=== PATIENT | male | born 1950 | race Caucasian/White ===

== ENCOUNTER 2019-01-30 06:32 | Observation (INO) ==
--- NOTE | 2019-01-24 10:20 | Anesthesiology Consultation ---
Date of Service January 24, 2019 Assessment & Plan (1) Encounter for pre-operative examination: Chart Review Chart Review: Acceptable Risk for Surgery and Patient NOT seen in Pre Admission Testing Consults Requested none History Surgery Operation Date: 01/30/19 11:30 Proposed Procedures p Open Right, Possible Bilateral Inguinal Hernia Repair with Mesh; Possible Bowel Resection - Margie Mora MD Height/Weight Height: 5 ft 7 in Weight: 98.883 kg Allergies Allergy/AdvReac Type Severity Reaction Status Date / Time No Known Allergies Allergy Verified 01/23/19 14:34 Medications Home Medications Medication Instructions Recorded Confirmed Last Taken dorzolamide-timolol 1 drp OPHTHALMIC (EYE) Q12H 01/23/19 01/23/19 Unknown Past Medical History Medical History Glaucoma Hx of tooth extraction Patient denies significant medical history Vision decreased LEFT Past Surgical History Surgical History Hx of cataract extraction BOTH EYES Social History Smoking Status: Current some day smoker tobacco type: cigarettes Smoking cigarettes per day: 1-2 Do You Dip or Chew Tobacco: No Hx Alcohol Use: Yes (WEEKEND) Alcohol type: beer alcohol intake frequency: a few times a week Hx Substance Use: No substance use type: does not use Exercise / Class Metabolic Activity II 4-5 Yardwork/Stairs/Walk up hill Testing Electrocardiogram Date: 12/06/18 Findings: + NSR @ (68 bpm) Laboratory Results CBC 12/26/18 WBC 5.5 Hgb 17.0 platelet 177 BMP 12/06/18 Na 141 K 3.3 Cl 101 CO2 28 BUN 11 Cr 1.2 glucose 97
[~2019-01-30 06:32] MED LIST: CEFAZOLIN 2000MG 2,000 MG/15 ML SYR IV SCH; LR 15ML/HR IV SCH; SODIUM CHLORIDE 0.9% 1000ML IV SCH
[2019-01-30] MEDS ORDERED: ONDANSETRON INJ 2 MG/ML 2 ML VIAL ONE (07:18)
[2019-01-30] MEDS ORDERED: LIDOCAINE HCL 2% 2 ML VIAL/AMP(20MG/ML) INFIL ONE (07:18)
[2019-01-30] MEDS ORDERED: PROPOFOL IV EMULSION 10 MG/ML 20 ML VIAL IV ONE (07:18)
[2019-01-30] MEDS ORDERED: DEXAMETHASONE SOD INJ 4 MG/ML VIAL ONE (07:18)
[2019-01-30] MEDS ORDERED: MIDAZOLAM HCL 1 MG/ML 2ML VIAL ONE (07:19)
[2019-01-30] MEDS ORDERED: fentaNYL citrate 100 MCG/2 ML VIAL ONE ×4 (07:19→12:07)
[2019-01-30] MEDS ORDERED: ATROPINE SULFATE 0.1 MG/ML 10ML SYR IV PRN (08:33)
[2019-01-30] MEDS ORDERED: DEXAMETHASONE SOD INJ 4 MG/ML VIAL IV PRN (08:33)
[2019-01-30] MEDS ORDERED: fentaNYL citrate 100 MCG/2 ML VIAL IV PRN (08:33)
[2019-01-30] MEDS ORDERED: HYDROmorphone INJ 2 MG/ML SYR/VIAL IV PRN (08:33)
[2019-01-30] MEDS ORDERED: ePHEDrine sulfate 50 MG/ML AMP IV PRN (08:33)
[2019-01-30] MEDS ORDERED: ONDANSETRON INJ 2 MG/ML 2 ML VIAL IV PRN ×2 (08:33→17:16)
[2019-01-30] MEDS ORDERED: BUPIVACAINE LIPOSOME 1.3% 266 MG/20 ML VIAL ONE (09:51)
[2019-01-30] MEDS ORDERED: BUPIVACAINE 0.25% 30 ML VIAL ONE (09:51)
--- NOTE | 2019-01-30 09:59 | History & Physical Bridge Note ---
Date of Service January 30, 2019 History & Physical Bridge Note I have examined the patient, reviewed the History & Physical and in the interval since the performance of the History & Physical I have noted the following changes of clinical significance: no changes noted
--- NOTE | 2019-01-30 10:05 | History & Physical Report ---
Date of Service January 30, 2019 Assessment & Plan (1) Inguinal hernia: IMPRESSION AND PLAN: Lewis Sanders is a 68 year old male who presents with a very large right and possibly left inguinal hernia. Discussed natural progression and possible complications of hernias. Also discussed laparoscopic vs open repair, which given the size of his hernia this would be difficult to repair laparoscopically, and primary repair vs repair with mesh. Due to size of the hernia as well as potential need for admission surgery would have to be performed at [place]. - Obtain CT scan with PO, possible IV (if able to given renal function) to further evaluate extent of hernia(s). - Will contact the patient's sister (Terrie Jimenez [phone]) with results. The patient has asked that I discuss CT findings with her as well as our discussion today to further explain hernia and recommendations - Discussed EGD for dysphagia and Colonoscopy. Was previously told it could not be performed at [place]. Office staff is looking into this and will try to have scopes setup here as is the patient's preference. - Will need pre-op clearance/risk stratification prior to surgery UPDATE SINCE INITIAL VISIT: SUBJECTIVE: Lewis Sanders presents to the clinic following 12/06/18 EGD and colonoscopy. He presents today with his sister who is helping to care for the patient. He is able to live independently and take care of ADLs, but she helps with keeping appointments and is the family member he discusses medical things with to help make decisions. Since his EGD and colonoscopy he may have noticed a slight improvement in swallowing. Still has issues with food (especially dry food such as chicken and other meats) and pills getting stuck, but notes he is now able to swallow some pills. He is taking pills without water sometimes. No major changes in his inguinal hernia. Still causes discomfort and makes daily care, including wiping, difficult. OBJECTIVE: Filed Vitals: 12/28/18 1555 BP: 126/70 Pulse: 64 Resp: 18 Temp: 36.6 C (97.8 F) TempSrc: Tympanic Weight: 101 kg (222 lb 9.6 oz) Constitutional: alert and no distress. PATHOLOGY: A. Esophagus at 33 cm, biopsy: Squamocolumnar mucosa with features of moderate reflux esophagitis, ulceration, acute inflammation, fungal hyphae and bacteria. No evidence of intestinal metaplasia or dysplasia identified. B. Duodenum, biopsy: Duodenal mucosa with preservation of villous architecture and no increase in intraepithelial lymphocytes. Immunohistochemical assay for Helicobacter pylori organisms is negative with appropriate control. C. Esophagus at 38 cm, biopsy: Squamocolumnar mucosa with features of mild reflux esophagitis and chronic gastritis, moderate. No evidence of intestinal metaplasia or dysplasia identified. D. Descending colon, polyp #2, biopsy: Tubular adenoma. E. Descending colon, polyp #1, biopsy: Tubular adenoma. F. Distal transverse colon, polyp #2, biopsy: Tubular adenoma. G. Distal transverse colon. polyp #1, biopsy: Tubular adenoma. IMPRESSION and PLAN: Lewis Sanders is a 68 yo male with bilateral inguinal hernias (very large right inguinal hernia,which was the reason for his initial evaluation, and a left inguinal hernia) who also had dysphagia. On CT scan obtained to further evaluate the hernia there were findings concerning for a rectal mass. Additional concerning findings and recommendations on CT scan include: rectal mass (colonoscopy was performed, Radiology also recommended correlation with PSA level, patchy ground glass opacities in the lower lobes likely representing inflammation or infection in the acute setting, enlarged lymph nodes in the right presacral region - concerning for mets, and prominent bilateral iliac chain lymph nodes) Colonoscopy was performed which was negative for a malignancy, but showed four tubular adenomas. EGD revealed fungal hyphae and bacteria, reflux esophagitis, ulceration, and acute inflammation; no metaplasia or dyplasia, and gastritis. Discussed with the patient and his sister the risk factors and implications for fungal infections of the esophagus, including immunosuppression Diagnoses: Tubular adenomas of the colon Esophageal fungal hyphae and bacteria (esophageal candidiasis) Reflux esophagitis Chronic gastritis Esophageal ulceration - Repeat colonoscopy in 3 years - Omeprazole 40 mg daily (30 minutes before meal) x 8 weeks - Fluconazole 400 mg daily x 14 days. Re-evaluation after 14 days to determine if duration should be increased to 21 days total. - Does not need to see provider regarding esophageal dilation. I clarified that the esophagus was assessed during EGD and discussed the above findings and to a llow treatment for esophageal fungus and assess symptoms prior to repeating EGD as this is the likely cause of his symptoms. However, he may need another scope for evaluation, but this should wait until after treatment. - Likely will require repeat EGD after 2 months of PPI - Take all pills with water - PSA, may require further evaluation by PCP vs Urology referral pending results (though in review of imaging thickening appears to be intraluminal, colonoscopy was negative for malignancy) - Ground glass opacities in lower lobes on CT scan, with recommendation for f/u imaging to ensure resolution. Message sent to PCP to arrange further follow up. - Message to PCP regarding all of the above and surgical clearance - Schedule for open right, possible bilateral, inguinal hernia repair with mesh, possible bowel resection. Consent reviewed, but will obtain official consent on the day of surgery as procedure will be done at [facility], which requires a different form. - Discussed increased technical difficulty of the case and increased risk of post-op complications given the size of the hernia. This included increased risk of seroma, hematoma, and need for bowel resection. Discussed increased risk of breathing difficulties given size of hernia, especially if there is loss of domain and potential for increased intra-abdominal pressure. Discussed need for inguinal and possible midline incision for repair and possible bowel resection - Discussed expected swelling and ecchymosis of groin and scrotum and high likelihood of seroma formation. - Discussed possible need for admission post-op and/or someone to stay with him for the first few days after surgery. He is very reluctant to either of these. States he prefers to be alone and wants to be at home. After discussion he is agreeable. - Schedule procedure for [facility]. Will have office contact the patient's sister (Terrie at [phone]) with further perioperative instructions and for scheduling - [place]-operative expectations were discussed with the patient including but not limited to: - Weight restriction of approximately 10 pounds x 4-6 weeks post-op - Pain control including scheduled Tylenol alternating with Ibuprofen, with possible Oxycodone for breakthrough as well as use of ice - The need for a pack train driver to and from the hospital the day of the procedure (if not admitted, as discussed above). Risks, benefits, goals, complications, post-op expectations, limitations, and alternatives were discussed with the patient and his sister. I discussed the deny ure of inguinal hernias. I discussed risks, which include, but are not limited to, pain, scarring, bleeding and associated problems, infection, heart attack, stroke, blood clots including deep vein thrombosis and pulmonary embolism, injury to surrounding tissues or organs, , need for additional procedures. Additional risks related to hernia repair which were discussed include hernia recurrence, acute and chronic pain, injury to nerves causing numbness and/or burning, injury to bowel, seroma, hematoma, risk of injury to spermatic cord or testicular damage, decreased sperm count or infertility, bruising and/or swelling of testicle(s), penis, and scrotum, mesh infection and need for mesh removal. All questions were answered to apparent satisfaction. History of Present Illness CHIEF COMPLAINT: Right inguinal hernia HISTORY OF PRESENT ILLNESS: The patient is a 68 year old male with a complaint of right inguinal hernia. The hernia has been present since probably 2012, thinks he recalls it starting during work. The patient has not had a history of a previous hernia repair. Symptoms present: reports right groin lump, has gotten significantly larger, to the point where his testicle is enlarged where he has difficulty sitting on the toilet and gets in the way of wiping. Denies: nausea, vomiting, pain, back pain, redness or erythema and change in bowel habits. Denies pain. Lump is not reducible. Symptoms did start at work. Symptoms are causing moderate limitations on the patient's ability to work and/or perform daily functions. Patient does not have a history of chronic constipation, chronic cough and difficulty urinating. When he was seen by his PCP on 10/25/18 he reported his hernia was getting larger. He also complained of difficulty swallowing pills and food, especially meat (referral to GI was placed). He has never had an EGD. He reports his last colonoscopy was unremarkable and was > 10 years ago. Pertinent PMHx: denies; patient denies COPD but it is listed in his chart Tobacco use: has "a cigarette from time to time when (he) is bored" BMI: BMI: 34.61 kg/m Primary Care Provider: Lovely Domingo PA-C Allergies Allergy/AdvReac Type Severity Reaction Status Date / Time No Known Allergies Allergy Verified 01/30/19 07:34 Home Medications Home Medications Medication Instructions Recorded Confirmed Type dorzolamide-timolol 1 drp OPHTHALMIC (EYE) Q12H 01/23/19 01/30/19 History Past Med/Surg History Medical History Glaucoma Hx of tooth extraction Patient denies significant medical history Vision decreased LEFT Surgical History Hx of cataract extraction BOTH EYES Social History Preferred Language: Nepalese Communication Ability: Effective Beliefs That Will Affect Care: None Current Living Situation: Alone Other Information That Helps Us Care for You: No Feels Safe at Home: Yes Safety Concerns: Feels Safe At This Time Smoking Status: Current some day smoker Tobacco Type: cigarettes Cigarettes Per Day: 1-2 Do You Dip or Chew Tobacco: No Hx Alcohol Use: Yes (WEEKEND) Alcohol type: beer Hx Substance Use: No Review of Systems Review of Systems: REVIEW OF SYSTEMS: Constitutional: No change in weight, No weakness, No fatigue and No fevers, sweats, or chills Eyes: No recent significant change in vision, No eye pain, redness, discharge, No diplopia, No h/o cataracts and No h/o glaucoma Ears: No ear pain, No drainage, No recent change in hearing and Positive for recent onset of tinnitus Nose: No significant epistaxis and Positive for frequent sinus issues and drainage over the past couple of years Mouth: No bleeding gums or No sore throat Neck: No lumps or masses, No swollen glands, No recent swelling in thyroid area, No significant pain in neck and No h/o goiter or thyroid disease Pulmonary: No cough, sputum, or hemoptysis, No shortness of breath and No recent change in breathing Cardiovascular: No chest pain, No shortness of breath, No dyspnea on exertion, No edema, No palpitations and No syncope Gastrointestinal: No abdominal pain, No change in bowel habits, No significant heartburn, No significant change in appetite, No nausea, vomiting, diarrhea, or constipation, No hematemesis, No blood in stools or black tarry stools, No abdo heike bloating or early satiety and No dysphagia, see HPI Male: No dysuria, No frequency, No incontinence and No urgency Hematologic: No coagulation disorder, No anemia, No abnormal bleeding, No ch ills, No bruising, No night sweats, No swollen nodes and No weight loss Extremities: No pain, redness or swelling on the joints Skin/Integumentary: No edema, No rash and No itching Neurologic: Normal balance, No headaches, No seizures and No weakness Psychiatric: No depression, No anxiety and No psychosis Sleep: No sleep disorders Physical Exam Physical Exam: Constitutional: alert, healthy Head: normocephalic, atraumatic Eyes: conjunctiva non-injected, sclera white, EOMI, left lateral eye gaze Ears: pinna normal shape and color Nose: no purulent discharge Mouth: no exudate Neck: supple, no adenopathy, no JVD, trachea midline Lungs: clear to auscultation, breath sounds are equal and symmetric Heart: regular rate & rhythm and no murmur, gallops or rubs Abdomen: soft , non-tender and non-distended; very large right inguinal hernia, possible left, with multiple loops of bowel, possible colon, within scrotum, soft, nontender, not reducible Back: normal curvature, no CVA tenderness Extremities: no joint deformities, effusion, or inflammation, no edema, no skin discoloration Neuro: Alert; slow, shuffling gait, uses cane Skin: no obvious rashes or significant lesions, warm and dry with good turgor Results & Data Vital Signs (Past 12 Hours) Vital Signs Temp Pulse Resp BP Pulse Ox 01/30/19 07:42 36.6 C 78 20 175/97 H 95
[2019-01-30] MEDS ORDERED: ePHEDrine sulfate 50 MG/ML AMP ONE (11:36)
[2019-01-30] MEDS ORDERED: GLYCOPYRROLATE 0.2 MG/ML VIAL ONE (12:47)
[2019-01-30] MEDS ORDERED: NEOSTIGMINE METHYLSULFATE 5 MG/5 ML SYR ONE (12:47)
[2019-01-30] MEDS ORDERED: ROCURONIUM BROMIDE 10 MG/ML 5 ML VIAL ONE (12:47)
--- NOTE | 2019-01-30 13:22 | Post Operative Brief Note ---
Immediate Post Op Note v1 Date of Surgery January 30, 2019 Pre & Post Diagnosis Operation Date: 01/30/19 08:50 Pre-Op Diagnosis: Right Inguinal hernia, possible Left Inguinal hernia Post-Op Diagnosis: Large Indirect Right Inguinal Hernia Procedure Operation Date: 01/30/19 08:50 Actual Procedures p Open Right Inguinal Hernia Repair with Mesh(Right) - Margie Mora MD (Bard Perfix extra large Plug and Patch; Ref: [id number], Lot: [id number]) Surgeon Margie Mora MD Burr Filer Fabiano Izaguirre MD Estimated Blood Loss 15 Findings Consistent with Post-Op Diagnosis Fluids 1500 mL Specimens None Drains Arnold Catheter (inserted by Kathryn Martins RN without difficulty, draining clear yellow urine) Anesthesia Type General Complications none
--- NOTE | 2019-01-30 14:04 | Operative Report ---
Post Operative Report Pre & Post Diagnosis Operation Date: 01/30/19 08:50 Pre-Op Diagnosis: Right Inguinal hernia Post-Op Diagnosis: Indirect Right Inguinal Hernia Procedure Operation Date: 01/30/19 08:50 Actual Procedures p Open Right Inguinal Hernia Repair with Mesh(Right) - Margie Mora MD (Bard Perfix extra large Plug and Patch; Ref: [id number], Lot: [id number]) Surgeon Margie Mora MD Academic Support Specialist Fabiano Izaguirre MD Estimated Blood Loss 15 Findings See Below Very large indirect right inguinal hernia with several loops of small bowel within the scrotum. Specimens None Anesthesia Type General Complications none Disposition Disposition: Recovery Room Description of Procedure History and Indications: The patient is a 68 year old male who presents with a right inguinal hernia, whichisnot recurrent. Discussed the option of observation vs operative intervention as well as open vs laparoscopic and mesh vs primary repair. The patient was consented for an open inguinal hernia repair with mesh. Risks, benefits, goals, complications, post-op expectations, limitations, and alternatives were discussed withthe patient. I discussed the nature ofright inguinal. I discussed risks, which include, but are not limited to, pain, scarring, bleeding and associated problems, infection, heart attack, stroke, blood clots including deep vein thrombosis and pulmonary embolism, injury to surrounding tissues or organs, , need for additional procedures. Additional risks related to hernia repair which were discussed include hernia recurrence, acute and chronic pain, injury to nerves causing numbness and/or burning, injury to bowel, seroma, hematoma, risk of injury to spermatic cord or testicular damage, decreased sperm count or infertility, bruising and/or swelling of testicle(s), penis, and scrotum, and need for mesh removal. All questions were answered to apparent satisfaction andthe patientfreely signed consent. Description of Procedure: The patient was taken to the operating room and placed in the supine position.The patient received perioperative antibiotics and SCDs were on and working. General anesthesia was induced. The patient was prepped and draped in the usual sterile fashion.A timeout was held verifying the correct patient, procedure, laterality, and implants. Local anesthetic (Exparel mixed with Marcaine) was injected in the planned area of incision. An incision was made with a scalpel and deepend through Amaya's and Camper's fascia with electrocautery until the external oblique aponeurosis was encountered. This was cleaned and the external ring was exposed. Local anesthetic was injected under the aponeurosis. An incision was made in the midportion of the external oblique aponeurosis in the direction of its fibers. This was further opened with Metzenbaum scissors. Flaps of the external oblique were developed cephalad and inferiorly. There was a large indirect inguinal hernia with several loops of small bowel within the scrotum and a large hernia sac. The cord was identified. It was gently dissected free at the pubic tubercle and encircled with a Pranav drain. The vas and testicular vessels were identified and protected from harm. Attention was directed to the anteromedial aspect of the cord,and an indirect hernia sac was identified. The sac was carefully dissected free of the cord down to the level of the internal ring. The hernia contents were reduced into the peritoneal cavity. The sac was excised closed witha running 0Vicryl suture. Redundant sac was excised. The stump of the sac was checked for hemostasis and allowed to retract into the abdomen. Attention was then turned to the floor of the canal, which was weak. Contents were reduced. An extra large plug was sutured into placeintwo locations using 0 PDS suture. The oval medial portion of the mesh patch was then sutured to the pubic tubercle. Care was taken to ensure that the mesh was placed in a relaxed fashion to avoid excessive tension and that no neurovascular structures were caught in the repair. Laterally the tails of the mesh were crossed, sutured together with an interrupted 0 PDS and the internal ring recreated, allowing for passage of the small finger. The mesh was sutured to the inguinal ligament with 0 PDS in an interrupted fashion. Additional local anesthetic was injected into the surgical site. Hemostasis was again checked. The [place] drain was removed. The external oblique aponeurosis was closed with a running suture of 3-0 Vicryl. The wound was injected with local anesthetic. Amaya's fascia was closed with 3-0 Vicryl in an interrupted fashion. A safety pause was held confirming that there were no specimens. The skin was closed with a subcuticular running 4-0 Monocryl suture. Instrument and sponge counts were reported as correct. Dermabond was applied to the wound. The patient tolerated the procedure well. He was extubated and taken to the recovery area in stable condition. I attest to the content of the Intraoperative Record and any orders documented therein. Any exceptions are noted below.
--- NOTE | 2019-01-30 14:40 | Anesthesiology Progress Note ---
Date of Service January 30, 2019 Anesthesia Post Procedure Vital Signs Vital Signs: Temp Pulse Pulse Resp BP Pulse Ox 01/30/19 14:25 37.1 C 83 18 155/84 H 95 01/30/19 14:15 87 15 131/86 94 01/30/19 14:05 88 15 163/84 H 100 01/30/19 13:55 92 H 14 156/103 H 99 01/30/19 13:45 81 18 121/85 96 01/30/19 13:38 36.7 C 87 14 159/109 H 99 01/30/19 07:42 36.6 C 78 20 175/97 H 95 Notes Mental Status: alert / awake / arousable and participated in evaluation Patient Amnestic to Procedure: Yes Nausea / Vomiting: adequately controlled Pain: adequately controlled Airway Patency, RR, SpO2: stable & adequate BP & HR: stable & adequate Hydration State: stable & adequate Anesthetic Complications: no major complications apparent
[2019-01-30] MEDS ORDERED: HYDROmorphone INJ 1 MG/ML SYRINGE IV PRN ×2 (17:16)
[2019-01-30] MEDS ORDERED: IBUPROFEN 600 MG TAB PO PRN (17:16)
[2019-01-30] MEDS ORDERED: HYDROmorphone INJ 0.5 MG/0.5 ML SYR IV PRN (17:16)
[2019-01-30] MEDS ORDERED: OXYCODONE HCL IR 5 MG TAB (IMMEDIATE RELEASE) PO PRN (17:16)
[2019-01-30] MEDS ORDERED: ACETAMINOPHEN 325 MG TAB PO PRN (17:16)
[2019-01-30] MEDS ORDERED: SODIUM CHLORIDE 0.9% 1000ML 1,000 ML IV SCH (18:00)
[2019-01-30] MEDS: DORZOLAMIDE/TIMOLOL 22.3/6.8MG/ML 10 ML BTL OP SCH (21:45)
[2019-01-31] MEDS: DORZOLAMIDE/TIMOLOL 22.3/6.8MG/ML 10 ML BTL OP SCH (07:31)
--- NOTE | 2019-01-31 08:27 | Anesthesiology Progress Note ---
Date of Service January 31, 2019 Anesthesia Post Procedure Vital Signs Vital Signs: Temp Pulse Pulse Resp BP BP Pulse Ox 01/31/19 07:05 36.9 C 70 16 104/69 93 01/31/19 03:15 36.9 C 70 16 103/69 93 01/30/19 23:28 36.8 C 78 16 111/78 93 01/30/19 20:17 36.8 C 62 19 110/74 91 01/30/19 19:18 36.4 C L 81 20 110/76 93 01/30/19 18:16 36.9 C 90 20 102/66 92 01/30/19 17:49 36.9 C 82 19 100/68 93 01/30/19 16:45 83 18 138/68 93 01/30/19 15:45 92 H 18 127/85 94 01/30/19 15:15 80 18 106/57 L 93 01/30/19 14:45 36.5 C 83 18 117/87 93 01/30/19 14:25 37.1 C 83 18 155/84 H 95 01/30/19 14:15 87 15 131/86 94 01/30/19 14:05 88 15 163/84 H 100 01/30/19 13:55 92 H 14 156/103 H 99 01/30/19 13:45 81 18 121/85 96 01/30/19 13:38 36.7 C 87 14 159/109 H 99 Notes Mental Status: alert / awake / arousable Patient Amnestic to Procedure: Yes Nausea / Vomiting: adequately controlled Pain: adequately controlled Airway Patency, RR, SpO2: stable & adequate BP & HR: stable & adequate Hydration State: stable & adequate Anesthetic Complications: no major complications apparent and Pt Satisfied with anesthetic care Notes: pt denies pain at this time
--- NOTE | 2019-01-31 14:01 | Surgery Progress Note ---
Date of Service Patient seen at [address] Mora LATE ENTRY January 31, 2019 Assessment & Plan (1) Inguinal hernia: PD # 1 s/p open right inguinal herniorrhaphy with mesh -vitals stable, afebrile - no n/v, tolerating regular diet - minimal post op pain Plan: Discharge home today discharge instructions reviewed with patient and sister encouraged to ambulate prior to discharge Rx for Oxycodone prn pain Rx for Fluconazole and Omeprazole F/u surgical office in [address] Mora has seen and examined pt, agrees with above. Supervising Physician Co-Signing Physician Notes I have seen and evaluated the patient and reviewed the medical record. I agree with the documentation as provided in this note by Queta Martinez PA-C. Subjective Patient feeling well minimal pain able to urinate still has itching in the groin and around the scrotum (has had for years) no chest pain/sob has alot of phlegm production tolerating breakfast ready to go home Physical Exam Constitutional: WD/WN, vitals as above no acute distress Respiratory: normal respiratory effort; no respiratory distress and no labored breathing Gastrointestinal (Abdomen): Inspection/Auscultation: abdomen normal to inspection; abdomen not distended Percussion/Palpation: + guarding and abdomen soft; abdomen nontender and abdomen not rigid Right groin incision: clean/dry/intact there is moderate erythema surrounding the incision and the entire right groin extending to the left however no warmth to touch or induration. Likely reactive from surgery and edema Skin: no rashes, warm and dry Results & Data Vital Signs (Past 12 Hours) Vital Signs Temp Pulse Resp BP Pulse Ox 01/31/19 09:22 36.9 C 70 16 104/69 93 01/31/19 07:05 36.9 C 70 16 104/69 93 01/31/19 03:15 36.9 C 70 16 103/69 93
--- NOTE | 2019-02-02 11:00 | Discharge Summary ---
Date of Service February 02, 2019 Admission HPI Per Admitting Provider UPDATE SINCE INITIAL VISIT: SUBJECTIVE: Lewis Sanders presents to the clinic following 12/06/18 EGD and colonoscopy. He presents today with his sister who is helping to care for the patient. He is able to live independently and take care of ADLs, but she helps with keeping appointments and is the family member he discusses medical things with to help make decisions. Since his EGD and colonoscopy he may have noticed a slight improvement in swallowing. Still has issues with food (especially dry food such as chicken and other meats) and pills getting stuck, but notes he is now able to swallow some pills. He is taking pills without water sometimes. No major changes in his inguinal hernia. Still causes discomfort and makes daily care, including wiping, difficult. OBJECTIVE: Filed Vitals: 12/28/18 1555 BP: 126/70 Pulse: 64 Resp: 18 Temp: 36.6 C (97.8 F) TempSrc: Tympanic Weight: 101 kg (222 lb 9.6 oz) Constitutional: alert and no distress. PATHOLOGY: A. Esophagus at 33 cm, biopsy: Squamocolumnar mucosa with features of moderate reflux esophagitis, ulceration, acute inflammation, fungal hyphae and bacteria. No evidence of intestinal metaplasia or dysplasia identified. B. Duodenum, biopsy: Duodenal mucosa with preservation of villous architecture and no increase in intraepithelial lymphocytes. Immunohistochemical assay for Helicobacter pylori organisms is negative with appropriate control. C. Esophagus at 38 cm, biopsy: Squamocolumnar mucosa with features of mild reflux esophagitis and chronic gastritis, moderate. No evidence of intestinal metaplasia or dysplasia identified. D. Descending colon, polyp #2, biopsy: Tubular adenoma. E. Descending colon, polyp #1, biopsy: Tubular adenoma. F. Distal transverse colon, polyp #2, biopsy: Tubular adenoma. G. Distal transverse colon. polyp #1, biopsy: Tubular adenoma. IMPRESSION and PLAN: Lewis Sanders is a 68 yo male with bilateral inguinal hernias (very large right inguinal hernia,which was the reason for his initial evaluation, and a left inguinal hernia) who also had dysphagia. On CT scan obtained to further evaluate the hernia there were findings concerning for a rectal mass. Additional concerning findings and recommendations on CT scan include: rectal mass (colonoscopy was performed, Radiology also recommended correlation with PSA level, patchy ground glass opacities in the lower lobes likely representing in flammation or infection in the acute setting, enlarged lymph nodes in the right presacral region - concerning for mets, and prominent bilateral iliac chain lymph nodes) Colonoscopy was performed which was negative for a malignancy, but showed four tubular adenomas. EGD revealed fungal hyphae and bacteria, reflux esophagitis, ulceration, and acute inflammation; no metaplasia or dyplasia, and gastritis. Discussed with the patient and his sister the risk factors and implications for fungal infections of the esophagus, including immunosuppression Diagnoses: Tubular adenomas of the colon Esophageal fungal hyphae and bacteria (esophageal candidiasis) Reflux esophagitis Chronic gastritis Esophageal ulceration - Repeat colonoscopy in 3 years - Omeprazole 40 mg daily (30 minutes before meal) x 8 weeks - Fluconazole 400 mg daily x 14 days. Re-evaluation after 14 days to determine if duration should be increased to 21 days total. - Does not need to see provider regarding esophageal dilation. I clarified that the esophagus was assessed during EGD and discussed the above findings and to allow treatment for esophageal fungus and assess symptoms prior to repeating EGD as this is the likely cause of his symptoms. However, he may need another scope for evaluation, but this should wait until after treatment. - Likely will require repeat EGD after 2 months of PPI - Take all pills with water - PSA, may require further evaluation by PCP vs Urology referral pending results (though in review of imaging thickening appears to be intraluminal, colonoscopy was negative for malignancy) - Ground glass opacities in lower lobes on CT scan, with recommendation for f/u imaging to ensure resolution. Message sent to PCP to arrange further follow up. - Message to PCP regarding all of the above and surgical clearance - Schedule for open right, possible bilateral, inguinal hernia repair with mesh, possible bowel resection. Consent reviewed, but will obtain official consent on the day of surgery as procedure will be done at [facility], which requires a different form. - Discussed increased technical difficulty of the case and increased risk of post-op complications given the size of the hernia. This included increased risk of seroma, hematoma, and need for bowel resection. Discussed increased risk of breathing difficulties given size of hernia, especially if th ere is loss of domain and potential for increased intra-abdominal pressure. Discussed need for inguinal and possible midline incision for repair and possible bowel resection - Discussed expected swelling and ecchymosis of groin and scrotum and high likelihood of seroma formation. - Discussed possible need for admission post-op and/or someone to stay with him for the first few days after surgery. He is very reluctant to either of these. States he prefers to be alone and wants to be at home. After discussion he is agreeable. - Schedule procedure for [facility]. Will have office contact the patient's sister (Terrie at [phone]) with further perioperative instructions and for scheduling - [place]-operative expectations were discussed with the patient including but not limited to: - Weight restriction of approximately 10 pounds x 4-6 weeks post-op - Pain control including scheduled Tylenol alternating with Ibuprofen, with possible Oxycodone for breakthrough as well as use of ice - The need for a tower truck driver to and from the hospital the day of the procedure (if not admitted, as discussed above). Risks, benefits, goals, complications, post-op expectations, limitations, and alternatives were discussed with the patient and his sister. I discussed the nature of inguinal hernias. I discussed risks, which include, but are not limited to, pain, scarring, bleeding and associated problems, infection, heart attack, stroke, blood clots including deep vein thrombosis and pulmonary embolism, injury to surrounding tissues or organs, , need for additional procedures. Additional risks related to hernia repair which were discussed include hernia recurrence, acute and chronic pain, injury to nerves causing numbness and/or burning, injury to bowel, seroma, hematoma, risk of injury to spermatic cord or testicular damage, decreased sperm count or infertility, bruising and/or swelling of testicle(s), penis, and scrotum, mesh infection and need for mesh removal. All questions were answered to apparent satisfaction. History of Present Illness CHIEF COMPLAINT: Right inguinal hernia HISTORY OF PRESENT ILLNESS: The patient is a 68 year old male with a complaint of right inguinal hernia. The hernia has been present since probably 2012, thinks he recalls it starting during work. The patient has not had a history of a previous hernia repair. Symptoms present: reports right groin lump, has gotten significantly larger, to the point where his testicle is enlarged where he has difficulty sitting on the toilet and gets in the way of wiping. Denies: nausea, vomiting, pain, back pain, redness or erythema and change in bowel habits. Denies pain. Lump is not reducible. Symptoms did start at work. Symptoms are causing moderate limitations on the patient's ability to work and/or perform daily functions. Patient does not have a history of chronic constipation, chronic cough and difficulty urinating. When he was seen by his PCP on 10/25/18 he reported his hernia was getting larger. He also complained of difficulty swallowing pills and food, especially meat (referral to GI was placed). He has never had an EGD. He reports his last colonoscopy was unremarkable and was > 10 years ago. Pertinent PMHx: denies; patient denies COPD but it is listed in his chart Tobacco use: has "a cigarette from time to time when (he) is bored" BMI: BMI: 34.61 kg/m Admission Exam Per Admitting Provider Constitutional: alert, healthy Head: normocephalic, atraumatic Eyes: conjunctiva non-injected, sclera white, EOMI, left lateral eye gaze Ears: pinna normal shape and color Nose: no purulent discharge Mouth: no exudate Neck: supple, no adenopathy, no JVD, trachea midline Lungs: clear to auscultation, breath sounds are equal and symmetric Heart: regular rate & rhythm and no murmur, gallops or rubs Abdomen: soft , non-tender and non-distended; very large right inguinal hernia, possible left, with multiple loops of bowel, possible colon, within scrotum, soft, nontender, not reducible Back: normal curvature, no CVA tenderness Extremities: no joint deformities, effusion, or inflammation, no edema, no skin discoloration Neuro: Alert; slow, shuffling gait, uses cane Skin: no obvious rashes or significant lesions, warm and dry with good turgor Principal Diagnosis Right inguinal hernia Candidal esophagitis Discharge Exam Constitutional WD/WN, vitals as above no acute distress ENMT Mouth: no TMJ abnormality Mallampati Class: II Neck normal visual inspection Respiratory normal respiratory effort; no respiratory distress and no labored breathing Auscultation: lungs clear to auscultation bilaterally Cardiovascular Rate/Rhythm: regular rate and regular rhythm Gastrointestinal (Abdomen) Inspection/Auscultation: abdomen normal to inspection; abdomen not distended Percussion/Palpation: + guarding and abdomen soft; abdomen nontender and abdomen not rigid Skin no rashes, warm and dry Neurologic moves all extremities Psychiatric Orientation: alert and oriented x 3 Discharge Data Allergies Allergy/AdvReac Type Severity Reaction Status Date / Time No Known Allergies Allergy Verified 01/30/19 07:34 Procedures Performed Operation Date: 01/30/19 08:50 Actual Procedures p Open Right Inguinal Hernia Repair with Mesh - Margie Mora MD Hospital Course (1) Inguinal hernia: The patient was admitted for elective repair of a large right inguinal hernia. Due to size of hernia and patient comorbidities patient was observed overnight. He did well, pain was well controlled, he ambulated, and was tolerating a diet. He was restarted on Omeprazole and and additional week of Fluconazole for candidal esophagitis was prescribed. He will need a repeat EGD in 2 months. The patient should follow-up for a post-operative check at the [place] office in approximately 2 weeks. Total Time Total Time Spent Total Time Spent (In Minutes): 30 minutes Total Time Includes: Examination of the Patient, Discharge Planning, Medication Reconciliation and Communication With Other Providers Discharge Plan Discharge Items Patient Disposition: Home - Self-Care Reason For Visit: Non-Recurrent Bilateral Inguinal Hernia without Ob Discharge Diagnosis: Right inguinal hernia Discharge Goals: Decrease discomfort Activity: Per 'Additional Instructions' section Lifting: No more than 10 pounds Exercise/Sports: None Non-emergency contact: Surgeon Call non-emergency contact if: you have any medication questions, your pain is not controlled, your temperature is above 101.5, your wound has increased redness and your wound has increased drainage Follow-up/Referrals: Lovely Domingo PA-C [Primary Care Provider] - Margie Mora MD [Physician] - Diet: Regular Addtl Provider Instructions: - You should alternate Tylenol 650 mg every 6 hours with Ibuprofen 600 mg every 6 hours (Take Tylenol, then 3 hours later take Ibuprofen, then 3 hours later take Tylenol again, etc.) for the first 3 days after surgery. - Your incision was closed with absorbable sutures. These are below the skin and are not visible. They will dissolve over time and do not need to be removed. - Your incision was covered with Dermabond (surgical glue that holds wound edges together). Dermabond will fall off on its own (usually in 5 - 10 days). Do NOT scratch, rub, or pick at the Dermabond. This may loosen the glue before your wound is healed. You may allow water and soap to run over the Dermabond/incision, but do NOT scrub the area. Do NOT soak the area in water (swimming, soaking in a bath, etc.) until the Dermabond has fallen off. After bathing, gently blot your wound dry with a soft towel. Do NOT apply any ointment or lotion to the incision. Protect the wound from prolonged exposure to sunlight or tanning lamps while the Dermabond is in place. - You may shower. You may allow the water and soap to run over the incisions, but do NOT scrub the incisions. Do not immerse the incisions in water for 1 week (ex. no baths, swimming, etc.). - No vigorous activity or lifting > 10 pounds for 6 weeks. - You should take an over the counter stool softener (ex. Colace, Senna) daily while on narcotics. Hold for loose stool. - Do NOT drive while taking narcotic pain medications. - You should follow up in clinic in approximately 2 weeks. Someone should contact you to schedule this appointment. If you do not hear from our office in 3 business days please call the general surgery office. - You will need a repeat EGD in 2-3 months. Take Fluconazole daily for an additional week. Continue to take Omeprazole - You may also apply baby powder to the groin area and wear loose fitting underwear for the groin itching Prescriptions: New oxycodone 5 mg tablet 5 mg PO Q4H PRN (Reason: pain) Qty: 20 RF: 0 fluconazole 200 mg tablet 400 mg PO DAILY 10 Days Qty: 20 RF: 0 omeprazole 40 mg capsule,delayed release(DR/EC) 40 mg PO DAILY Qty: 30 RF: 3 Continued dorzolamide-timolol 22.3-6.8 mg/mL Drops 1 drp OPHTHALMIC (EYE) Q12H RF: 0 Stand-Alone Forms: [facility] Discharge Orders: Discharge Order (Routine); Ordered 01/31/19 Ordered By: Queta Martinez Admission Data Admit Date/Time: 01/30/19 17:16 Attending Provider: Margie Mora Admit Provider: Margie Mora Primary Care Provider: Lovely Domingo Service: Surgical Services Other Interventions: Discharge Summary Assessment (RN) Last Done: 01/31/19 09:22 DC Date/Time DO NOT enter until pt leaves facility: 01/31/19 09:45
== END 2019-01-31 09:45 | disposition home or self-care (01) ==
LOC: 3N 06:32 → ASU 06:32